=== PATIENT | male | born 1945 | race Caucasian/White ===

== ENCOUNTER 2019-12-10 20:22 | Inpatient (IN) | payer OTHER, MEDICAID ==
[~2019-12-10] VITALS: Ht 172.7 cm; Wt 85.7 kg
--- NOTE | 2019-12-10 20:28 | NUR ---
PT AAOX4. BIB EMS C/O SOB WITH WHEEZING. PATIENT WAS SEEN BY PMD TODAY AND DIAGNOSED WITH PNM. HHN TX GIVEN BY EMS CHILD AND FAMILY SERVICES SPECIALIST. PT PLACED ON 2L NC SAT 96%. NO ACUTE DISTRESS NOTED. VSS. WILL CONTINUE TO MONITOR. MD AT BEDSIDE FOR EVAL.
--- NOTE | 2019-12-10 20:35 | NUR ---
FLU SWAB SAMPLE SENT TO LAB FOR TESTING
--- NOTE | 2019-12-10 20:38 | NUR ---
BLOOD DRAWN AND SENT TO LAB
[2019-12-10] MEDS ORDERED: methylPREDNISolone SOD SUCC 125 MG/2ML VIAL ONE (20:39)
--- NOTE | 2019-12-10 20:48 | NUR ---
RT CALLED FOR MEDICATION ADMIN.
--- NOTE | 2019-12-10 20:50 | NUR ---
MEDICATION GIVEN, VSS.
[2019-12-10] MEDS ORDERED: methylPREDNISolone SOD SUCC 125 MG/2ML VIAL IV ONE (21:00)
[2019-12-10] MEDS ORDERED: IPRATROPIUM NEB FS 0.5 MG/2.5 ML AMPUL.NEB NEB ONE (21:00)
[2019-12-10] MEDS ORDERED: ALBUTEROL FS 2.5 MG/3 ML VIAL.NEB CONTNEB ONE (21:00)
[2019-12-10 21:05] LABS: CALCIUM, SERUM 9.3 mg/dL (8.5-10.1); CREATININE 1.3 mg/dL (0.6-1.3)
[2019-12-10 21:08] LABS: BASOPHILS % (AUTO) 0.8 % (0.0-2.0); EOSINOPHILS % (AUTO) 2.4 % (0.0-6.0); HEMATOCRIT 31 % (39-51); LYMPHOCYTES # (AUTO) 1.2 /CMM (0.8-4.8); LYMPHOCYTES % (AUTO) 20.3 % (20.0-44.0); MEAN CORPUSCULAR HGB CONC 32 g/dl (31.0-36.0); MEAN CORPUSCULAR VOLUME 91 fL (80-96); MONOCYTES # (AUTO) 0.6 /CMM (0.1-1.30); MONOCYTES % (AUTO) 10.3 % (2.0-12.0); NEUTROPHILS # (AUTO) 3.8 /CMM (1.8-8.9); NEUTROPHILS % (AUTO) 66.2 % (43.0-81.0); PLATELET COUNT (AUTO) 122 /CMM (150-450); RED BLOOD CELL COUNT(AUTO) 3.39 MIL/uL (4.5-6.0); WHITE BLOOD COUNT (AUTO) 5.7 K/uL (4.3-11.0)
[2019-12-10 21:19] LABS: BILIRUBIN,DIRECT 0.2 mg/dL (0.0-0.2); BILIRUBIN,TOTAL 0.5 mg/dL (0.2-1.0)
--- NOTE | 2019-12-10 21:29 | NUR ---
PER DAUGHTER. PT WAS SEEN BY PRIMARY WHICH HE HAD AN X RAY DONE WHICH SHOWED PNEUMONIA. PT WAS TOLD HE WOULD TAKE OXYGEN AND NEUBLIZER HOME. PT WAS NOT PROVIDED WITH OXYGEN. DAUGHTER REPORTS SEEING PATIENT GASPING FOR AIR WHERE HE LIVES. CALLED PM AND BROUGHT PT TO ED.
[2019-12-10] MEDS ORDERED: ALBUTEROL FS 2.5 MG/3 ML VIAL.NEB ONE (21:40)
[2019-12-10] MEDS ORDERED: IPRATROPIUM NEB FS 0.5 MG/2.5 ML AMPUL.NEB ONE (21:40)
--- NOTE | 2019-12-10 21:45 | NUR ---
RT AT BEDSIDE FOR BREATHING TREATMENT.
--- NOTE | 2019-12-10 21:46 | NUR ---
XRAY AT BEDSIDE
--- NOTE | 2019-12-10 22:12 | NUR ---
epic classifications officer cc/cm christelle domínguez paged for panel
--- NOTE | 2019-12-10 22:13 | NUR ---
called for tele bed
--- NOTE | 2019-12-10 22:55 | NUR ---
[facility]
--- NOTE | 2019-12-10 23:12 | NUR ---
REPORT GIVEN TO LOUISE SYED FOR CONTINUATION OF CARE.
[2019-12-10] MEDS ORDERED: LORA10TA7 PO (23:23)
[2019-12-10] MEDS ORDERED: LOSA25TA27 PO (23:23)
[2019-12-10] MEDS ORDERED: DOCU100C36 PO (23:23)
[2019-12-10] MEDS ORDERED: CLIN300C11 PO (23:23)
[2019-12-10] MEDS ORDERED: ISOS30TA9 PO (23:23)
[2019-12-10] MEDS ORDERED: LEVO500T75 PO (23:23)
[2019-12-10] MEDS ORDERED: DULO60CA45 PO (23:23)
[2019-12-10] MEDS ORDERED: CARV6.25 PO (23:23)
[2019-12-10] MEDS ORDERED: DONE10TA11 PO (23:23)
[2019-12-10] MEDS ORDERED: APIX2.5T PO (23:23)
[2019-12-10] MEDS ORDERED: MORP15TA PO (23:23)
[2019-12-10] MEDS ORDERED: BUPR-96 PO (23:23)
[2019-12-10] MEDS ORDERED: GLIP5TAB13 PO (23:23)
[2019-12-10] MEDS ORDERED: SENN-168 PO (23:23)
--- NOTE | 2019-12-10 23:30 | NUR ---
APPLICATION ENGINEER OPENING NOTE RECEIVED PATIENT BY ER NURSE IN [facility] [place] WITH DAUGHTER HOSSEIN AT BEDSIDE. PATIENT IS A/O X1 IS ABLE TO TRACE WITH EYES BUT SPEECH IS SLURRED. PATIENT ON THE MONITOR IS SHOWING SINUS RHYTHM. PATIENT IS ON 2L OF O2 TOLERATING AT 96% SATURATION. ALL SKIN IS INTACT. PATIENT HAS RFA IV ACCES #16 PATENT AND FLUSHING WITH NO SIGN OF INFILTRATION. ALL SAFETY PRECAUTIONS HAVE BEEN APPLIED. WILL CONTINUE TO MONITOR PATIENT THROUGHOUT NIGHT.
[2019-12-11] VITALS (9 sets, daily range): BP systolic 114–183; BP diastolic 51–106
--- NOTE | 2019-12-11 00:25 | NUR ---
PT TRANSFERED PER ACLS PROTOCOL.
[2019-12-11] MEDS ORDERED: ACETAMINOPHEN 325 MG TABLET PO PRN (01:00)
[2019-12-11] MEDS ORDERED: BUMETANIDE INJ 4 MG in IV NS 0.9% 24 ML IV ONE (01:00)
[2019-12-11] MEDS ORDERED: ONDANSETRON HCL/PF 4 MG/2 ML VIAL IVP PRN (01:00)
[2019-12-11] MEDS ORDERED: Z GUARD REMEDY 2 OZ OINT TP PRN (01:00)
[2019-12-11] MEDS ORDERED: ENOXAPARIN SODIUM 40 MG/0.4 ML DISP.SYRIN SQ SCH (01:00)
[2019-12-11] MEDS ORDERED: BUMETANIDE INJ 0.25 MG/ML VIAL ONE (01:13)
[2019-12-11] MEDS ORDERED: MULT-447 PO (07:34)
[2019-12-11] MEDS ORDERED: ISOS30TA6 PO (07:34)
--- NOTE | 2019-12-11 07:48 | NUR ---
RN OPENING NOTES RECEIVED PATIENT RESTING IN BED COMFORTABLY WITH GOWN REMOVED OFF CHEST BECAUSE HE GETS HOT EASILY. HE IS AOX1, VERBAL, AND ON BEDREST. HE IS ON 2L OF OXYGEN VIA NC, TOLERATING WELL, DENIES HAVING SOB AT THIS TIME. TELE MONITOR SHOWING SR. SKIN IS INTACT, PT HAS SACRAL REDNESS WILL ROTATE PER PROTOCOL. HE IS ON CARDIAC DIET, CRUSHED MEDS IN APPLE SAUCE. RFA 16 IS PATENT AND INTACT, RUNNING BUMEX AT 1 MG PER HOUR. SAFETY MEASURES HAVE BEEN IMPLEMENTED, CALL LIGHT IS WITHIN REACH, BED IS IN LOWEST AND LOCKED POSITION, SIDE RIALS UP X2, WILL CONTINUE TO MONITOR FOR ANY CHANGES.
--- NOTE | 2019-12-11 08:02 | NUR ---
LIGHT CLEANER CLOSING NOTE PATIENT IN BED A LOT MORE ALERT THAN WHEN ADMITTING. PATIENT IS A/O X2 IS ABLE TO STATE NAME WITH COMPREHENSIBLE SPEECH. PATIENT IS AFIB ON THE MONITOR WITH HR IN THE 70'S. SWALLOW TEST WAS PERFORMED. PATIENT WAS ABLE TO SWALLOW APPLESAUCE WITH PRECAUTIONS TO ASPIRATIONS. PATIENT CONTINUES TO BE ON 2L OF 02 SATURATING AT 97%. Unified Color IS RUNNING THE THE RFA IV ACCESS #16. ALL SAFETY PRECAUTIONS HAVE BEEN APPLIED. BP STILL SLIGHTLY ELEVATED BUT ENDORSED TO MORNING SHIFT NURSE FOR KETTY.
[2019-12-11] MEDS: PANTOPRAZOLE 40 MG TABLET.DR PO SCH (08:03)
[2019-12-11] MEDS ORDERED: hydrALAZINE HCL 50 MG TABLET PO ONE (08:30)
[2019-12-11] MEDS ORDERED: METOPROLOL TARTRATE 50 MG TABLET PO ONE (08:30)
[2019-12-11 11:03] LABS: MAGNESIUM 1.8 mg/dL (1.8-2.4); PHOSPHORUS 5.2 mg/dL (2.5-4.9)
--- NOTE | 2019-12-11 11:10 | NUR ---
RN NOTES REPORT GIVEN TO JULIANNA SYED FOR KETTY
--- NOTE | 2019-12-11 11:22 | NUR ---
just now, care taken over. Alert, but not oriented, did not even know where he is right now, did not even follow basic commands. NO sign of respiratory distress, denied pain.
[2019-12-11] MEDS: BUPROPION XL 150 MG TAB.ER.24 PO SCH (13:50)
[2019-12-11] MEDS: SENNOSIDES 8.6 MG TABLET PO SCH ×2 (13:50→23:24)
[2019-12-11] MEDS: ISOSORBIDE MONONITRATE (30MG) 30 MG TAB.SR.24H PO SCH (13:50)
[2019-12-11] MEDS: LOSARTAN POTASSIUM 25 MG TABLET PO SCH (13:50)
[2019-12-11] MEDS: DOCUSATE SODIUM 100 MG CAPSULE PO SCH ×2 (13:51→17:29)
[2019-12-11] MEDS: DULOXETINE HCL 30 MG CAPSULE.DR PO SCH (17:28)
[2019-12-11] MEDS: CARVEDILOL 6.25 MG TABLET PO SCH (17:29)
[2019-12-11] MEDS: glipiZIDE 5 MG TABLET PO SCH (17:29)
[2019-12-11] MEDS: APIXABAN 2.5 MG TABLET PO SCH (17:30)
[2019-12-11] MEDS: DONEPEZIL 5 MG TABLET PO SCH (23:22)
[2019-12-11] MEDS: MORPHINE SULFATE IR 15 MG TABLET PO SCH (23:23)
[2019-12-12] VITALS (15 sets, daily range): BP systolic 103–174; BP diastolic 47–138
[2019-12-12 06:25] LABS: BASOPHILS % (AUTO) 0.6 % (0.0-2.0); EOSINOPHILS % (AUTO) 1.6 % (0.0-6.0); HEMATOCRIT 34 % (39-51); HEMOGLOBIN 10.9 g/dL (13.5-17.5); LYMPHOCYTES % (AUTO) 25.9 % (20.0-44.0); MEAN CORPUSCULAR HGB CONC 33 g/dl (31.0-36.0); MEAN CORPUSCULAR VOLUME 91 fL (80-96); MONOCYTES # (AUTO) 0.7 /CMM (0.1-1.30); MONOCYTES % (AUTO) 9.1 % (2.0-12.0); NEUTROPHILS # (AUTO) 4.9 /CMM (1.8-8.9); NEUTROPHILS % (AUTO) 62.8 % (43.0-81.0); PLATELET COUNT (AUTO) 146 /CMM (150-450); RED BLOOD CELL COUNT(AUTO) 3.68 MIL/uL (4.5-6.0); WHITE BLOOD COUNT (AUTO) 7.7 K/uL (4.3-11.0)
[2019-12-12 06:43] LABS: CHOLESTEROL 204 mg/dL (<200); HDL CHOLESTEROL 60 mg/dL (40-60); LDL 131 mg/dL (0-99); THYROID STIMULATING HORMONE 2.607 uIU/mL (0.358-3.74); TRIGLYCERIDES 64 mg/dL (30-150)
[2019-12-12 06:51] LABS: ALANINE AMINOTRANSFERASE 19 U/L (12-78); ALBUMIN 3.1 g/dL (3.4-5.0); ALKALINE PHOSPHATASE 66 U/L (46-116); ASPARTATE AMINOTRANSFERASE 15 U/L (15-37); B-TYPE NATRIURETIC PEPTIDE 3929 PG/ML (0-125); BILIRUBIN,TOTAL 0.4 mg/dL (0.2-1.0); CALCIUM, SERUM 9.1 mg/dL (8.5-10.1); CARBON DIOXIDE 35 mmol/L (21-32); CHLORIDE 105 mmol/L (98-107); CREATININE 1.6 mg/dL (0.6-1.3); GLUCOSE 126 mg/dL (74-106); PHOSPHORUS 4.4 mg/dL (2.5-4.9); POTASSIUM 3.9 mmol/L (3.5-5.1); SODIUM SERUM 143 mmol/L (136-145); TOTAL PROTEIN, SERUM 7.2 g/dL (6.4-8.2); UREA NITROGEN, BLOOD 46 mg/dL (7-18)
[2019-12-12 07:16] LABS: IRON, SERUM 27 ug/dl (50-175); TOTAL IRON BINDING CAPACITY 281 ug/dl (250-450)
[2019-12-12] MEDS: BUPROPION XL 150 MG TAB.ER.24 PO SCH (08:30)
[2019-12-12] MEDS: MULTIVITAMINS,THERAGRAN 1 UDTAB TABLET PO SCH (08:31)
[2019-12-12] MEDS: ISOSORBIDE MONONITRATE (30MG) 30 MG TAB.SR.24H PO SCH (08:31)
[2019-12-12] MEDS: PANTOPRAZOLE 40 MG TABLET.DR PO SCH (08:31)
[2019-12-12] MEDS: DOCUSATE SODIUM 100 MG CAPSULE PO SCH ×2 (08:31→18:13)
[2019-12-12] MEDS: LOSARTAN POTASSIUM 25 MG TABLET PO SCH (08:32)
[2019-12-12] MEDS: glipiZIDE 5 MG TABLET PO SCH ×2 (08:32→18:15)
[2019-12-12] MEDS: CARVEDILOL 6.25 MG TABLET PO SCH ×2 (08:32→18:14)
[2019-12-12] MEDS: APIXABAN 2.5 MG TABLET PO SCH ×2 (08:33→17:00)
[2019-12-12] MEDS ORDERED: acetaZOLAMIDE SODIUM 500 MG/VIAL VIAL IV ONE (09:30)
[2019-12-12 09:48] LABS: ABG BASE EXCESS 3.2 mmol/L; ABG OXYGEN SATURATION 91.2 % (92.0-98.5); ABG PCO2 66.6 mmHg (35.0-45.0); ABG PH 7.289 (7.350-7.450); ABG PO2 71.3 mmHg (75.0-100.0); AaDO2 49.8 mmHg; COHb 0.5 % (0.5-1.5); MetHb 0.2 % (0.0-1.5); O2Hb 90.6 % (94.0-97.0); SITE, ABG Left Radial; VENT MODE, BG 2L N/C
--- NOTE | 2019-12-12 09:58 | NUR ---
RT ABG DONE WITH CRITICAL VALUES REPORTED TO YAHAIRA TELLO AND CHARGE NURSE ERIS. PATIENT CURRENTLY STABLE. AWAITING ORDERS FROM DOCTOR.
--- NOTE | 2019-12-12 11:40 | NUR ---
ICU/DENTAL CERAMIST ASSISTANT OF CARE - UPGRADE ICU REPORT GIVEN BY NURSE TELLO. TO BE TRANSFERRED TO ICU FOR BI-PAP. PT ARRIVED TO ROOM 250 VIA BED, ACCOMPANIED BY (2) NURSE, MY SELF AND ROE AND SOLID DIE CUTTER (DEMETRIUS) PT PLACED ON BIPAP WITH RATES SET PRESCRIBED: IPAP 15, EPAP 5, FIO2 30% & RATE 12. SATURATING @ 93, RESPIRATIONS EVEN & UNLABORED, LUNG SOUNDS CLEAR. PLACED ON TELE MONITORING NOTED, CONTROLLED A-FIB, HR 63. PT A/O X 1, ABLE TO VERBALIZED NEEDS. IV FLUSHED PATENT WITH NO S/S OF INFECTION. NO EDEMA NOTED. CL WITHIN REACHED AND SAFETY MAINTAINED. ON GOING MONITORING.
--- NOTE | 2019-12-12 12:01 | NUR ---
PER DR GANNON PATIENT PLACED ON BIPAP MACHINE [facility]. 31/03 R12 30% Addendum: 12/12/19 at 1202 by JAMES REID RT Amended: Links added.
[2019-12-12] MEDS: hydrALAZINE HCL 25 MG TABLET PO SCH ×2 (13:00→21:33)
--- NOTE | 2019-12-12 13:00 | NUR ---
ICU/COLLEGE RECRUITER TO ICU - ROOM 250 PT ENDORSED BY NURSE TELLO TO CONTINUE CARE. PT A/O X 1, ABLE TO VERBALIZED NEEDS, NO ACUTE RESPIRATORY DISTRESS NOTED, LUNG SOUNDS RHONCHI, TRANSFERRED ICU FOR BI-PAP. IV SITE FLUSHED, PATENT, NO S/S OF INFECTION, SL. MONITORING CONTINUED.
--- NOTE | 2019-12-12 17:00 | NUR ---
ICU/RN AFTERNOON ROUNDS NO CHANGE OF CONDITION. PM CARE PROVIDED. PT OFF BI-PAP, PLACED ON 3L O2 VIA N/C. ON GOING MONITORING.
[2019-12-12] MEDS: DULOXETINE HCL 30 MG CAPSULE.DR PO SCH (18:14)
--- NOTE | 2019-12-12 20:00 | NUR ---
SALESPERSON MEN'S AND BOYS' CLOTHING OPENING NOTE, PATIENT IN BED RESTING, A/O X1. PATIENT IS ABLE TO VERBALIZED NEEDS, ON CONDOM CATH, IV SL ON RIGHT AC, FLUSHED WELL, NO S/S OF INFILTRATION. PATIENT IS ON 2L O2 TOLERATING WELL. NO SOB OR ACUTE DISTRESS NOTED AT THIS TIME. PATIENT ON MONITOR HR 62. BED IN LOW/LOCKED POSITION, CALL LIGHT WITHIN REACH. WILL CONTINUE TO MONITOR.
[2019-12-12] MEDS: DONEPEZIL 5 MG TABLET PO SCH (21:32)
[2019-12-12] MEDS: SENNOSIDES 8.6 MG TABLET PO SCH (21:33)
[2019-12-12] MEDS: MORPHINE SULFATE IR 15 MG TABLET PO SCH (21:48)
[2019-12-13] VITALS (21 sets, daily range): BP systolic 95–170; BP diastolic 26–72
[2019-12-13] MEDS: hydrALAZINE HCL 25 MG TABLET PO SCH ×3 (05:12→21:21)
[2019-12-13 05:15] LABS: BASOPHILS % (AUTO) 0.6 % (0.0-2.0); EOSINOPHILS % (AUTO) 2.7 % (0.0-6.0); HEMATOCRIT 33 % (39-51); HEMOGLOBIN 10.5 g/dL (13.5-17.5); LYMPHOCYTES # (AUTO) 1.2 /CMM (0.8-4.8); LYMPHOCYTES % (AUTO) 19.8 % (20.0-44.0); MEAN CORPUSCULAR HGB CONC 32 g/dl (31.0-36.0); MEAN CORPUSCULAR VOLUME 94 fL (80-96); MONOCYTES # (AUTO) 0.5 /CMM (0.1-1.30); MONOCYTES % (AUTO) 9.2 % (2.0-12.0); NEUTROPHILS % (AUTO) 67.7 % (43.0-81.0); PLATELET COUNT (AUTO) 125 /CMM (150-450); WHITE BLOOD COUNT (AUTO) 5.9 K/uL (4.3-11.0)
[2019-12-13 05:31] LABS: ALANINE AMINOTRANSFERASE 19 U/L (12-78); ALBUMIN 2.9 g/dL (3.4-5.0); ALKALINE PHOSPHATASE 64 U/L (46-116); ASPARTATE AMINOTRANSFERASE 15 U/L (15-37); BILIRUBIN,TOTAL 0.5 mg/dL (0.2-1.0); CALCIUM, SERUM 8.7 mg/dL (8.5-10.1); CARBON DIOXIDE 34 mmol/L (21-32); CHLORIDE 105 mmol/L (98-107); CREATININE 1.7 mg/dL (0.6-1.3); GLUCOSE 129 mg/dL (74-106); MAGNESIUM 1.9 mg/dL (1.8-2.4); PHOSPHORUS 4.5 mg/dL (2.5-4.9); POTASSIUM 4.2 mmol/L (3.5-5.1); SODIUM SERUM 143 mmol/L (136-145); TOTAL PROTEIN, SERUM 6.7 g/dL (6.4-8.2); UREA NITROGEN, BLOOD 48 mg/dL (7-18)
[2019-12-13 05:46] LABS: CREATINE KINASE, TOTAL 37 U/L (39-308)
--- NOTE | 2019-12-13 06:58 | NUR ---
DAIRY FEED MIXING OPERATOR CLOSING NOTE, PATIENT IN BED RESTING, A/O X1. PATIENT IS ABLE TO VERBALIZED NEEDS, ON CONDOM CATH, IV SL ON RIGHT AC, FLUSHED WELL, NO S/S OF INFILTRATION. PATIENT IS ON BIPAP, TOLERATING WELL. NO SOB OR ACUTE DISTRESS NOTED AT THIS TIME. PATIENT ON MONITOR HR 57. BED IN LOW/LOCKED POSITION, CALL LIGHT WITHIN REACH. WILL ENDORSE THE PATIENT TO AM RN FOR KETTY.
--- NOTE | 2019-12-13 07:30 | NUR ---
ICU/RN AM SHIFT OPENING NOTES RECEIVED PT AWAKE IN BED, PT A/O X 1, PLEASANT, ABLE TO VERBALIZED NEEDS, DENIES ANY SYMPTOMS. NO ACUTE RESPIRATORY DISTRESS NOTED. ON 1.5L O2 VIA N/C SATURATING @ 94%, RESPIRATIONS EVEN & UNLABORED, LUNG SOUNDS CLEAR. ON TELE MONITORING, SINUS RHYTHM, HR 62. IV SITE FLUSHED, PATENT WITH NO S/S OF INFECTION, SL. CONDOM CATHETER INTACT NOTED WITH MINIMAL CLEAR URINE OUT. PT IS COMFORTABLE, SCHEDULED AM MEDS TO BE GIVEN. CL WITHIN REACHED AND SAFETY MAINTAINED. ON GOING MONITORING. Addendum: 12/13/19 at 1153 by MICHAEL MCDONALD RN ERROR IN CHARTING: PT ON TELE MONITORING NOTED WITH CONTROLLED A-FIB.
[2019-12-13] MEDS: APIXABAN 2.5 MG TABLET PO SCH ×2 (08:20→17:57)
[2019-12-13] MEDS: CARVEDILOL 6.25 MG TABLET PO SCH ×2 (08:20→17:57)
[2019-12-13] MEDS: ISOSORBIDE MONONITRATE (30MG) 30 MG TAB.SR.24H PO SCH (08:20)
[2019-12-13] MEDS: MULTIVITAMINS,THERAGRAN 1 UDTAB TABLET PO SCH (08:21)
[2019-12-13] MEDS: glipiZIDE 5 MG TABLET PO SCH ×2 (08:21→17:57)
[2019-12-13] MEDS: PANTOPRAZOLE 40 MG TABLET.DR PO SCH (08:21)
[2019-12-13] MEDS: BUPROPION XL 150 MG TAB.ER.24 PO SCH (08:21)
[2019-12-13] MEDS: DOCUSATE SODIUM 100 MG CAPSULE PO SCH ×2 (08:21→17:57)
--- NOTE | 2019-12-13 09:00 | NUR ---
ICU/RN ROUNDS - DR. EVANS PT SEEN & EVALUATED BY DR. EVANS. VERBAL ORDER FOR STAT ABG. RT NOTIFIED, NOTED AND CARRIED OUT.
[2019-12-13] MEDS ORDERED: BUMETANIDE INJ 8 MG in IV NS 0.9% 48 ML IV ONE (09:30)
[2019-12-13 09:40] LABS: ABG OXYGEN SATURATION 93.5 % (92.0-98.5); ABG PCO2 57.8 mmHg (35.0-45.0); ABG PH 7.319 (7.350-7.450); ABG PO2 76.9 mmHg (75.0-100.0); COHb 0.2 % (0.5-1.5); MetHb 0.1 % (0.0-1.5); O2Hb 93.2 % (94.0-97.0); SITE, ABG Left Radial; VENT MODE, BG NASAL CANNULA
[2019-12-13 09:47] LABS: CREATININE, URINE 124.8 MG/DL (30.0-125.0); URINE TOTAL PROTEIN 53.4 mg/dL (0-11.9)
--- NOTE | 2019-12-13 10:00 | NUR ---
ICU/RN SPEECH THERAPIST PT SEEN & EVALUATED BY SPEECH THERAPIST. RECOMMENDED MECHANICAL SOFT DIET. NOTED AND CARRIED.
--- NOTE | 2019-12-13 10:25 | NUR ---
ICU/RN ABG RESULT NOTIFIED BY DR. EVANS OF THE RESULT OF ABG, ORDERED TO REDUCE O2 FLOW FROM 1.5L TO 1.0 O2 VIA N/C. NOTED AND CARRIED, RT AWARE. MONITORING CONTINUED.
[2019-12-13 11:13] LABS: APPEARANCE,URINE CLEAR (CLEAR); BILIRUBIN,URINE NEGATIVE (NEGATIVE); BLOOD, URINE NEGATIVE Ery/uL (NEGATIVE); COLOR,URINE YELLOW (YELLOW); KETONES,URINE NEGATIVE (NEGATIVE); LEUKOCYTE ESTERASE ,URINE NEGATIVE (NEGATIVE); NITRITE, URINE NEGATIVE (NEGATIVE); PH,URINE 7.5 (5.0-8.0); PROTEIN,URINE 30 mg/dl (NEGATIVE); UGLUCOSE NEGATIVE (NEGATIVE)
[2019-12-13 12:33] LABS: BACTERIA,URINE Few /HPF (None Seen); RBC,URINE 0-2 /HPF (0-2)
[2019-12-13 12:34] LABS: SQUAMOUS EPITHELIAL CELL,UR Rare /HPF (None Seen)
[2019-12-13 13:10] LABS: EOSINOPHIL,URINE None Seen
[2019-12-13] MEDS: SOD FERRIC GLUC 125 MG in IV NS 0.9% 100 ML IV SCH (14:56)
--- NOTE | 2019-12-13 17:00 | NUR ---
ICU/RN AFTERNOON ROUNDS NO CHANGE OF CONDITION. PT NOTED WITH LARGE AMOUNTS OF URINE OUTPUT. MONITORING CONTINUED.
[2019-12-13] MEDS: DULOXETINE HCL 30 MG CAPSULE.DR PO SCH (17:57)
--- NOTE | 2019-12-13 19:00 | NUR ---
ICU/SUPERVISOR OPERATIONS OF CARE - DOWNGRADED PT ENDORSED TO NURSE NICOLAS TO CONTINUE CARE. PT TRANSFERRED TO ROOM 107 IN STABLE CONDITION VIA BED ACCOMPANIED BY MYSELF AND NURSE NICOLAS.
--- NOTE | 2019-12-13 19:25 | NUR ---
RN OPENING NOTES RECEIVED PATIENT RESTING IN BED, AWAKE, A/OX2. DENIES ANY PAIN AT THE MOMENT. ON TELE MONITOR AFIB WITH HR 60'S. ON OXYGEN 1L VIA NASAL CANNULA, TOLERATING WELL, NO SOB OR RESPIRATORY DISTRESS NOTED, SATURATING 96% AT THE MOMENT. IV SITE RIGHT FA 16G, FLUSHING AND PATENT, CLAMPED, SITE C/D/I. CONDOM CATH IS INTACT, DRAINING YELLOW URINE NOTED. SAFETY MEASURES IN PLACE; CALL LIGHT WITHIN REACH, BED IS IN LOWEST AND LOCKED POSITION, SIDE RAILS UP X2, HOB ELEVATED. WILL CONTINUE TO MONITOR PT CLOSELY.
--- NOTE | 2019-12-13 20:30 | NUR ---
CARRIE RN NOTES PATIENT SATURATING 92-93% ON 1L VIA NASAL CANNULA. INCREASED OXYGEN TO 2L AND ONLY INCREASED TO 94%. INCREASED TO 3L AND NOW SATURATING 96% AND ABOVE. NO SOB OR RESPIRATORY DISTRESS NOTED. WILL CONT TO MONITOR PT CLOSELY.
[2019-12-13] MEDS: DONEPEZIL 5 MG TABLET PO SCH (21:21)
[2019-12-13] MEDS: SENNOSIDES 8.6 MG TABLET PO SCH (21:21)
--- NOTE | 2019-12-13 23:45 | NUR ---
PT PLACED ON NOC BIPAP. RN NOTIFIED.
[2019-12-14] VITALS: BP 132/46
[2019-12-14 04:00] VITALS: BP 122/41
[2019-12-14] MEDS: hydrALAZINE HCL 25 MG TABLET PO SCH ×3 (04:31→21:00)
--- NOTE | 2019-12-14 05:52 | NUR ---
PT TAKEN OFF BIPAP. PLACED ON 3L NC. RN NOTIFIED.
[2019-12-14 06:24] LABS: BASOPHILS % (AUTO) 0.5 % (0.0-2.0); EOSINOPHILS % (AUTO) 2.7 % (0.0-6.0); HEMATOCRIT 33 % (39-51); HEMOGLOBIN 10.7 g/dL (13.5-17.5); LYMPHOCYTES # (AUTO) 1.2 /CMM (0.8-4.8); LYMPHOCYTES % (AUTO) 18.5 % (20.0-44.0); MEAN CORPUSCULAR HGB CONC 33 g/dl (31.0-36.0); MEAN CORPUSCULAR VOLUME 91 fL (80-96); MONOCYTES # (AUTO) 0.7 /CMM (0.1-1.30); NEUTROPHILS # (AUTO) 4.4 /CMM (1.8-8.9); NEUTROPHILS % (AUTO) 68.3 % (43.0-81.0); PLATELET COUNT (AUTO) 127 /CMM (150-450); RED BLOOD CELL COUNT(AUTO) 3.58 MIL/uL (4.5-6.0); WHITE BLOOD COUNT (AUTO) 6.5 K/uL (4.3-11.0)
[2019-12-14 06:30] LABS: ALANINE AMINOTRANSFERASE 13 U/L (12-78); ALKALINE PHOSPHATASE 65 U/L (46-116); ASPARTATE AMINOTRANSFERASE 13 U/L (15-37); BILIRUBIN,TOTAL 0.4 mg/dL (0.2-1.0); CALCIUM, SERUM 8.6 mg/dL (8.5-10.1); CARBON DIOXIDE 37 mmol/L (21-32); CHLORIDE 103 mmol/L (98-107); CREATININE 1.9 mg/dL (0.6-1.3); GLUCOSE 146 mg/dL (74-106); MAGNESIUM 1.9 mg/dL (1.8-2.4); PHOSPHORUS 3.4 mg/dL (2.5-4.9); POTASSIUM 3.6 mmol/L (3.5-5.1); SODIUM SERUM 141 mmol/L (136-145); TOTAL PROTEIN, SERUM 6.8 g/dL (6.4-8.2); UREA NITROGEN, BLOOD 50 mg/dL (7-18)
--- NOTE | 2019-12-14 07:01 | NUR ---
CARRIE RN CLOSING NOTES PATIENT SLEEPING IN BED, BUT EASY TO AROUSE, A/OX2. ON TELE MONITOR AFIB WITH HR 50'S-60'S. NOCTURNAL BIPAP TOLERATED WELL, NOW ON OXYGEN 3L VIA NASAL CANNULA, TOLERATING WELL, NO SOB OR RESPIRATORY DISTRESS NOTED, SATURATING 96% AT THE MOMENT. IV SITE RIGHT FA 16G, FLUSHING AND PATENT, S/L, SITE C/D/I. CONDOM CATH IS INTACT, DRAINING YELLOW URINE NOTED. KEPT PT CLEAN, DRY, AND COMFORTABLE. SAFETY MEASURES IN PLACE; CALL LIGHT WITHIN REACH, BED IS IN LOWEST AND LOCKED POSITION, SIDE RAILS UP X2, HOB ELEVATED. ENDORSED TO AM RN FOR KETTY. Addendum: 12/14/19 at 0735 by JENI OHARA RN PATIENT HR 48 BPM TWICE LAST NIGHT. ENDORSED TO AM RN.
[2019-12-14 08:00] VITALS: BP 151/55
--- NOTE | 2019-12-14 08:00 | NUR ---
CARRIE RN NOTE PATIENT IN BED. AWAKE, ALERT , FOLLOW COMMAND, ON TELE MONITOR, SR HR 63, WITH US CATH TO GRAVITY WITH YELLOW COLOR URINE, RT FA HL INTACT AND FLUSHED WELL , NO SOB AT THIS TIME, ON2L NC ,SAT 95%, BED IN LOWEST AND LOCKED POSITION , CALL LIGHT WITHIN REACH, PLAN OF CARE DISCUSSED WITH PATIENT, WILL MONITOR
[2019-12-14 08:08] LABS: PTH, INTACT 60 pg/mL (15-65)
[2019-12-14] MEDS: PANTOPRAZOLE 40 MG TABLET.DR PO SCH (09:25)
[2019-12-14] MEDS: APIXABAN 2.5 MG TABLET PO SCH ×2 (09:26→16:26)
[2019-12-14] MEDS: glipiZIDE 5 MG TABLET PO SCH ×2 (09:27→16:27)
[2019-12-14] MEDS: MULTIVITAMINS,THERAGRAN 1 UDTAB TABLET PO SCH (09:29)
[2019-12-14] MEDS: BUPROPION XL 150 MG TAB.ER.24 PO SCH (09:29)
[2019-12-14] MEDS: ISOSORBIDE MONONITRATE (30MG) 30 MG TAB.SR.24H PO SCH (09:30)
--- NOTE | 2019-12-14 09:37 | NUR ---
CARRIE RN NOTE ST AT BEDSIDE WITH ORDER CHOPPED DIET
[2019-12-14] MEDS: DOCUSATE SODIUM 100 MG CAPSULE PO SCH ×2 (09:38→16:24)
[2019-12-14] MEDS: CARVEDILOL 6.25 MG TABLET PO SCH ×2 (09:39→16:26)
--- NOTE | 2019-12-14 11:27 | NUR ---
CARRIE RN NOTE US RENAL DONE
[2019-12-14 12:00] VITALS: BP 122/36
[2019-12-14] MEDS: SOD FERRIC GLUC 125 MG in IV NS 0.9% 100 ML IV SCH (13:51)
--- NOTE | 2019-12-14 15:12 | NUR ---
COST COORDINATOR NOTE FED PATIENT ,ATE LUNCH , KEEP CLEAN DRY .CALL LIGHT WITHIN REACH
--- NOTE | 2019-12-14 15:26 | NUR ---
REPAIRER RECREATIONAL VEHICLE NOTE PER DAUGHTER REQUEST, INFORM TO TOM PADILLA RN SERVICE COUNTER CASHIER TO CALL HER, PHONE NUMBER GIVEN TO HIM
[2019-12-14 16:00] VITALS: BP 132/45
[2019-12-14] MEDS: POTASSIUM CHLORIDE 20 MEQ TAB.PRT.SR PO SCH ×3 (17:22→18:59)
[2019-12-14] MEDS: FUROSEMIDE 100 MG/10 ML VIAL IV SCH ×2 (17:22→21:15)
[2019-12-14] MEDS: DULOXETINE HCL 30 MG CAPSULE.DR PO SCH (17:38)
--- NOTE | 2019-12-14 18:22 | NUR ---
GROUND WATER TECHNICIAN NOTES PT IN BED ON O2 [address] CONDOM CATH IN PLACE, WITH YELLOW URINE. HAD BM X 1. KEEP CLEAN AND DRY. FED PT ATE 50% OF DINNER. HOB ELEVATED CALL LIGHT AT REACH. SAFTEY MEASURE OBSERVED. WILL MONITOR. NO SOB NOTED.
--- NOTE | 2019-12-14 19:20 | NUR ---
RN OPEN NOTES RECEIVED PATIENT AWAKE SITTING IN BED WITH FAMILY AT BEDSIDE. A/OX2. NO SIGNS OF DISTRESS OR DISCOMFORT. BREATHING EVEN AND UNLABORED. ON 1LPM 02 VIA NC. ON TELE MONITOR WITH AFIB 61 NOTED. IV ACCESS IN RFA, PATENT AND INTACT, NO SIGNS OF REDNESS OR INFILTRATION. HAS CONDOM CATH, INTACT, DRAINING CLEAR YELLOW FLUID. BED IN LOW LOCKED POSITION WITH SIDE RAILS X2. CALL LIGHT WITHIN REACH. WILL CONTINUE TO MONITOR.
[2019-12-14 20:00] VITALS: BP 128/44
[2019-12-14] MEDS: SENNOSIDES 8.6 MG TABLET PO SCH (21:15)
[2019-12-14] MEDS: DONEPEZIL 5 MG TABLET PO SCH (21:15)
[2019-12-15] VITALS (7 sets, daily range): BP systolic 115–138; BP diastolic 43–62
[2019-12-15] MEDS: FUROSEMIDE 100 MG/10 ML VIAL IV SCH ×4 (00:27→18:32)
[2019-12-15] MEDS: hydrALAZINE HCL 25 MG TABLET PO SCH ×3 (05:59→21:02)
[2019-12-15 06:28] LABS: BASOPHILS % (AUTO) 0.4 % (0.0-2.0); EOSINOPHILS % (AUTO) 2.6 % (0.0-6.0); HEMATOCRIT 35 % (39-51); HEMOGLOBIN 11.6 g/dL (13.5-17.5); LYMPHOCYTES # (AUTO) 1.5 /CMM (0.8-4.8); LYMPHOCYTES % (AUTO) 22.3 % (20.0-44.0); MEAN CORPUSCULAR HGB CONC 33 g/dl (31.0-36.0); MEAN CORPUSCULAR VOLUME 91 fL (80-96); MONOCYTES # (AUTO) 0.7 /CMM (0.1-1.30); NEUTROPHILS # (AUTO) 4.4 /CMM (1.8-8.9); NEUTROPHILS % (AUTO) 64.7 % (43.0-81.0); PLATELET COUNT (AUTO) 138 /CMM (150-450); RED BLOOD CELL COUNT(AUTO) 3.91 MIL/uL (4.5-6.0); WHITE BLOOD COUNT (AUTO) 6.8 K/uL (4.3-11.0)
[2019-12-15 06:49] LABS: ALANINE AMINOTRANSFERASE 19 U/L (12-78); ALBUMIN 3.3 g/dL (3.4-5.0); ALKALINE PHOSPHATASE 69 U/L (46-116); ASPARTATE AMINOTRANSFERASE 13 U/L (15-37); BILIRUBIN,TOTAL 0.5 mg/dL (0.2-1.0); CALCIUM, SERUM 9.5 mg/dL (8.5-10.1); CARBON DIOXIDE 36 mmol/L (21-32); CHLORIDE 104 mmol/L (98-107); CREATININE 1.9 mg/dL (0.6-1.3); GLUCOSE 151 mg/dL (74-106); MAGNESIUM 2.1 mg/dL (1.8-2.4); PHOSPHORUS 3.7 mg/dL (2.5-4.9); POTASSIUM 3.7 mmol/L (3.5-5.1); SODIUM SERUM 142 mmol/L (136-145); TOTAL PROTEIN, SERUM 7.4 g/dL (6.4-8.2); UREA NITROGEN, BLOOD 43 mg/dL (7-18)
[2019-12-15 07:11] LABS: *SPE A/G RATIO 0.9 (0.7-1.7); *SPE ALBUMIN 2.9 g/dL (2.9-4.4); *SPE ALPHA-1-GLOBULIN 0.2 g/dL (0.0-0.4); *SPE ALPHA-2-GLOBULIN 0.8 g/dL (0.4-1.0); *SPE GLOBULIN, TOTAL 3.3 g/dL (2.2-3.9); *SPE M-SPIKE Not Observed g/dL (Not Observed); *SPEGAMMA GLOBULIN 1.3 g/dL (0.4-1.8)
--- NOTE | 2019-12-15 07:40 | NUR ---
RN CLOSING NOTES PATIENT RESTING COMFORTABLY IN BED, EASILY AROUSABLE. A/OX2. NO SIGNS OF DISTRESS OR DISCOMFORT. BREATHING EVEN AND UNLABORED. ON 1LPM 02 VIA NC. ON TELE MONITOR WITH AFIB 65 NOTED. IV ACCESS IN RFA, PATENT AND INTACT, NO SIGNS OF REDNESS OR INFILTRATION. HAS CONDOM CATH, INTACT, DRAINING CLEAR YELLOW FLUID. ALL NEEDS MET. NO SIGNIFICANT CHANGES THROUGH THE NIGHT. BED IN LOW LOCKED POSITION WITH SIDE RAILS X2. CALL LIGHT WITHIN REACH. ENDORSED TO AM SHIFT FOR KETTY.
--- NOTE | 2019-12-15 07:40 | NUR ---
RNOPENING NOTES RECEIVED PATIENT ASLEEP IN BED WITH HOB ELEVATED. PATIENT IS A/O X2, NO DISCOMFORT NOTED AT THIS TIME. BREATHING IS EVEN AND UNLABORED, ON 1L O2 VIA NC, TOLERATING WELL, SATURATING WELL AT 97%. IV ON RFA INTACT, PATENT, NO S/S OF INFECTION NOTED. FLUSHED WELL. PATIENT HAS A CONDOM CATH INTACT, DRAINING CLEAR YELLOW URINE. SAFETY MAINTAINED, CALL LIGHT WITHIN REACH, WILL CONTINUE TO MONITOR.
[2019-12-15] MEDS: BUPROPION XL 150 MG TAB.ER.24 PO SCH (09:31)
[2019-12-15] MEDS: ISOSORBIDE MONONITRATE (30MG) 30 MG TAB.SR.24H PO SCH (09:31)
[2019-12-15] MEDS: PANTOPRAZOLE 40 MG TABLET.DR PO SCH (09:31)
[2019-12-15] MEDS: DOCUSATE SODIUM 100 MG CAPSULE PO SCH ×2 (09:31→17:36)
[2019-12-15] MEDS: CARVEDILOL 6.25 MG TABLET PO SCH ×2 (09:32→17:38)
[2019-12-15] MEDS: MULTIVITAMINS,THERAGRAN 1 UDTAB TABLET PO SCH (09:32)
[2019-12-15] MEDS: APIXABAN 2.5 MG TABLET PO SCH ×2 (09:33→17:39)
[2019-12-15] MEDS: glipiZIDE 5 MG TABLET PO SCH ×2 (09:33→17:38)
[2019-12-15] MEDS: METOLAZONE 2.5 MG TABLET PO SCH (11:39)
[2019-12-15] MEDS: POTASSIUM CHLORIDE 20 MEQ TAB.PRT.SR PO SCH ×3 (11:39→13:04)
[2019-12-15] MEDS: SOD FERRIC GLUC 125 MG in IV NS 0.9% 100 ML IV SCH (13:31)
[2019-12-15] MEDS: DULOXETINE HCL 30 MG CAPSULE.DR PO SCH (17:37)
--- NOTE | 2019-12-15 19:15 | NUR ---
RN CLOSING NOTES ENDORSED PATIENT TO BARREL RIB MATTING MACHINE OPERATOR NURSE TO CONTINUE CARE. NO ACUTE CHANGES TO PATIENT CONDITION DURING MY SHIFT. ALL NEEDS MET. DAUGHTER AT BEDSIDE. ALL SCHEDULED MEDICATIONS ADMINISTERED. SAFETY MAINTAINED, CALL LIGHT WITHIN REACH, BARREL RIB MATTING MACHINE OPERATOR NURSE WILL CONTINUE CARE.
--- NOTE | 2019-12-15 19:30 | NUR ---
Recieved in bed alert orientated x2. daughter at the bedside both eating a snack condom cath on
[2019-12-15] MEDS: DONEPEZIL 5 MG TABLET PO SCH (21:44)
[2019-12-15] MEDS: SENNOSIDES 8.6 MG TABLET PO SCH (21:44)
--- NOTE | 2019-12-15 23:28 | NUR ---
RT NOTE Pt placed on bipap per md order @ 2081. Pt shows no signs of resp distress or sob. Mepilex in place and no skin tear or redness noted. Bipap plugged into red outlet, Alarms are set and audible. Will continue to monitor. Addendum: 12/15/19 at 2330 by CODEY SAEZ RT Amended: Links added.
[2019-12-16] VITALS: BP 133/44
[2019-12-16 04:00] VITALS: BP 152/73
[2019-12-16] MEDS: hydrALAZINE HCL 25 MG TABLET PO SCH ×3 (05:14→21:21)
--- NOTE | 2019-12-16 06:24 | NUR ---
BIPAP THRU THE NIGHT NO RESP DISTRESS WILL FOLLOW SIMOLE DIRECTIONS SMILES AN DOES COMMUNICAT SIMPLE SENTENCES.
[2019-12-16 06:35] LABS: BASOPHILS % (AUTO) 0.4 % (0.0-2.0); EOSINOPHILS % (AUTO) 1.7 % (0.0-6.0); HEMATOCRIT 37 % (39-51); HEMOGLOBIN 12.1 g/dL (13.5-17.5); LYMPHOCYTES # (AUTO) 1.4 /CMM (0.8-4.8); LYMPHOCYTES % (AUTO) 15.3 % (20.0-44.0); MEAN CORPUSCULAR HGB CONC 33 g/dl (31.0-36.0); MEAN CORPUSCULAR VOLUME 90 fL (80-96); MONOCYTES # (AUTO) 0.8 /CMM (0.1-1.30); MONOCYTES % (AUTO) 8.7 % (2.0-12.0); NEUTROPHILS # (AUTO) 6.6 /CMM (1.8-8.9); NEUTROPHILS % (AUTO) 73.9 % (43.0-81.0); PLATELET COUNT (AUTO) 155 /CMM (150-450); RED BLOOD CELL COUNT(AUTO) 4.13 MIL/uL (4.5-6.0)
[2019-12-16 06:54] LABS: ALANINE AMINOTRANSFERASE 17 U/L (12-78); ALBUMIN 3.4 g/dL (3.4-5.0); ALKALINE PHOSPHATASE 70 U/L (46-116); ASPARTATE AMINOTRANSFERASE 14 U/L (15-37); CARBON DIOXIDE 34 mmol/L (21-32); CHLORIDE 97 mmol/L (98-107); CREATININE 2.3 mg/dL (0.6-1.3); GLUCOSE 178 mg/dL (74-106); MAGNESIUM 1.9 mg/dL (1.8-2.4); PHOSPHORUS 3.8 mg/dL (2.5-4.9); POTASSIUM 3.6 mmol/L (3.5-5.1); SODIUM SERUM 140 mmol/L (136-145); TOTAL PROTEIN, SERUM 7.8 g/dL (6.4-8.2); UREA NITROGEN, BLOOD 50 mg/dL (7-18)
[2019-12-16] MEDS: PANTOPRAZOLE 40 MG TABLET.DR PO SCH (07:41)
[2019-12-16 07:43] LABS: BILIRUBIN,TOTAL 0.6 mg/dL (0.2-1.0)
[2019-12-16 08:00] VITALS: BP 138/69
[2019-12-16] MEDS: BUPROPION XL 150 MG TAB.ER.24 PO SCH (08:58)
[2019-12-16] MEDS: DOCUSATE SODIUM 100 MG CAPSULE PO SCH ×2 (08:58→16:54)
[2019-12-16] MEDS: MULTIVITAMINS,THERAGRAN 1 UDTAB TABLET PO SCH (08:58)
[2019-12-16] MEDS: CARVEDILOL 6.25 MG TABLET PO SCH ×2 (08:58→16:55)
[2019-12-16] MEDS: METOLAZONE 2.5 MG TABLET PO SCH (08:58)
[2019-12-16] MEDS: ISOSORBIDE MONONITRATE (30MG) 30 MG TAB.SR.24H PO SCH (08:58)
[2019-12-16] MEDS: glipiZIDE 5 MG TABLET PO SCH ×2 (08:58→16:54)
[2019-12-16] MEDS: APIXABAN 2.5 MG TABLET PO SCH ×2 (08:59→16:55)
--- NOTE | 2019-12-16 11:17 | NUR ---
TELE/RN NOTES PER PT CLAUDIO TO D/C THE ORDER FOR EVAL SINCE HE ALREADT SAW HIM AND ITS A DUPLICATE ORDER.
[2019-12-16] MEDS: FUROSEMIDE 40 MG TABLET PO SCH (11:23)
[2019-12-16 12:00] VITALS: BP_SYST 101; BP_SYST 128; BP_DIAS 47; BP_DIAS 73
[2019-12-16] MEDS: SOD FERRIC GLUC 125 MG in IV NS 0.9% 100 ML IV SCH (13:25)
[2019-12-16 16:00] VITALS: BP 120/54
[2019-12-16] MEDS: DULOXETINE HCL 30 MG CAPSULE.DR PO SCH (16:54)
--- NOTE | 2019-12-16 19:16 | NUR ---
MS/RN CLOSING NOTES PATIENT CONTINUES TO REMAIN IN STABLE CONDITION THROUGHOUT THE SHIFT. PROVIDED COMFORT AND SAFETY. PATIENT ABLE TO TOLERATE MEALS AND MEDS WELL. ALL NEEDS ANTICIPATED. CALL LIGHT WITHIN REACHED. BED LOCKED AND IN LOWEST POSITION. SAFETY MAINTAINED. WILL CONTINUE TO MONITOR CLOSELY. ENDORSED TO PM NURSE FOR KETTY.
--- NOTE | 2019-12-16 19:35 | NUR ---
MS RN RECEIVED PATIENT IN BED A/O X 3 DAUGHTER AT BEDSIDE, STABLE AND NOT IN DISTRESS. WILL CONTINUE TO MONITOR
[2019-12-16 20:00] VITALS: BP 130/69
[2019-12-16] MEDS: SENNOSIDES 8.6 MG TABLET PO SCH (21:20)
[2019-12-16] MEDS: DONEPEZIL 5 MG TABLET PO SCH (21:20)
[2019-12-17] VITALS: BP 128/56
--- NOTE | 2019-12-17 03:11 | NUR ---
RT Pt tolerating night time BiPAP. Addendum: 12/17/19 at 0311 by KAMILA LYNN RT Amended: Links added.
[2019-12-17 04:34] VITALS: BP 117/54
[2019-12-17] MEDS: hydrALAZINE HCL 25 MG TABLET PO SCH ×3 (05:43→21:15)
--- NOTE | 2019-12-17 06:52 | NUR ---
PT ASLEEP AND EASILY AWAKEN, TOLERATING BIPAP SETTINGS DURING HS. PT NOW ON O2 NC 1LPM. O2 SAT AT 96%. SLEPT WELL. NOT IN APPARENT DISTRESS. AM CARE RENDERED, KEPT CLEAN, DRY AND COMFORTABLE. NEEDS ATTENDED AND ANTICIPATED. SAFETY MEASURES AT ALL TIMES. WILL ENDORSE NEXT SHIFT POC.
--- NOTE | 2019-12-17 07:43 | NUR ---
RN OPENING NOTES RECEIVED PATIENT AWAKE IN BED. A/O X4. PATIENT IS NO LONGER ON TELE MONITOR, GOT TRANSFERRED TO MED SURG. PATIENT IS ON 1L O2 VIA NC, TOLERATING WELL, SATURATING WELL. NO SOB OR ACUTE DISTRESS IS NOTED. IV ON RIGHT FOREARM, GAUGE #22. INTACT, PATENT AND FLUSHED WELL. NO S/S OF INFECTION IS NOTED. SAFETY MAINTAINED, CALL LIGHT WITHIN REACH. WILL CONTINUE TO MONITOR.
[2019-12-17 08:00] VITALS: BP 120/68
[2019-12-17] MEDS: glipiZIDE 5 MG TABLET PO SCH ×2 (08:49→18:02)
[2019-12-17] MEDS: MULTIVITAMINS,THERAGRAN 1 UDTAB TABLET PO SCH (08:49)
[2019-12-17] MEDS: FUROSEMIDE 40 MG TABLET PO SCH (08:49)
[2019-12-17] MEDS: DOCUSATE SODIUM 100 MG CAPSULE PO SCH ×2 (08:49→18:01)
[2019-12-17] MEDS: BUPROPION XL 150 MG TAB.ER.24 PO SCH (08:49)
[2019-12-17] MEDS: CARVEDILOL 6.25 MG TABLET PO SCH ×2 (08:50→18:01)
[2019-12-17] MEDS: APIXABAN 2.5 MG TABLET PO SCH ×2 (08:51→18:02)
[2019-12-17] MEDS: ISOSORBIDE MONONITRATE (30MG) 30 MG TAB.SR.24H PO SCH (08:51)
[2019-12-17] MEDS: PANTOPRAZOLE 40 MG TABLET.DR PO SCH (08:57)
[2019-12-17 13:16] LABS: CALCIUM, SERUM 9.2 mg/dL (8.5-10.1); CARBON DIOXIDE 34 mmol/L (21-32); CHLORIDE 96 mmol/L (98-107); CREATININE 2.3 mg/dL (0.6-1.3); GLUCOSE 265 mg/dL (74-106); POTASSIUM 3.6 mmol/L (3.5-5.1); SODIUM SERUM 137 mmol/L (136-145); UREA NITROGEN, BLOOD 57 mg/dL (7-18)
[2019-12-17] MEDS: SOD FERRIC GLUC 125 MG in IV NS 0.9% 100 ML IV SCH (14:10)
[2019-12-17 14:17] LABS: BASOPHILS % (AUTO) 0.6 % (0.0-2.0); EOSINOPHILS % (AUTO) 2.2 % (0.0-6.0); HEMATOCRIT 37 % (39-51); HEMOGLOBIN 11.8 g/dL (13.5-17.5); LYMPHOCYTES # (AUTO) 1.4 /CMM (0.8-4.8); MEAN CORPUSCULAR HGB CONC 32 g/dl (31.0-36.0); MEAN CORPUSCULAR VOLUME 90 fL (80-96); MONOCYTES # (AUTO) 0.7 /CMM (0.1-1.30); MONOCYTES % (AUTO) 9.4 % (2.0-12.0); NEUTROPHILS # (AUTO) 5.4 /CMM (1.8-8.9); NEUTROPHILS % (AUTO) 69.8 % (43.0-81.0); PLATELET COUNT (AUTO) 157 /CMM (150-450); RED BLOOD CELL COUNT(AUTO) 4.05 MIL/uL (4.5-6.0); WHITE BLOOD COUNT (AUTO) 7.7 K/uL (4.3-11.0)
[2019-12-17 16:00] VITALS: BP 115/52
[2019-12-17] MEDS: DULOXETINE HCL 30 MG CAPSULE.DR PO SCH (18:00)
[2019-12-17 20:00] VITALS: BP 132/49
[2019-12-17] MEDS: DONEPEZIL 5 MG TABLET PO SCH (21:14)
[2019-12-17] MEDS: SENNOSIDES 8.6 MG TABLET PO SCH (21:15)
--- NOTE | 2019-12-17 21:15 | NUR ---
RN NOTES DID NOT ADMINISTER [place] BECAUSE PATIENT DOES NOT HAVE CONSTIPATION. HAD LIQUID STOOL EARLIER DURING THE DAY.
[2019-12-18 04:00] VITALS: BP 157/74
--- NOTE | 2019-12-18 04:33 | NUR ---
RT NOTE Pt placed on bipap per md order @ 6797. Pt shows no signs of resp distress or sob. Mepilex in place and no skin tear or redness noted. Bipap plugged into red outlet, Alarms are set and audible. Will continue to monitor. Addendum: 12/18/19 at 0433 by CODEY SAEZ RT Amended: Links added.
[2019-12-18] MEDS: hydrALAZINE HCL 25 MG TABLET PO SCH ×2 (04:49→14:54)
[2019-12-18 06:54] LABS: BASOPHILS % (AUTO) 0.5 % (0.0-2.0); EOSINOPHILS % (AUTO) 2.8 % (0.0-6.0); HEMATOCRIT 36 % (39-51); HEMOGLOBIN 11.9 g/dL (13.5-17.5); LYMPHOCYTES # (AUTO) 1.8 /CMM (0.8-4.8); MEAN CORPUSCULAR HGB CONC 33 g/dl (31.0-36.0); MEAN CORPUSCULAR VOLUME 90 fL (80-96); MONOCYTES # (AUTO) 0.8 /CMM (0.1-1.30); MONOCYTES % (AUTO) 9.5 % (2.0-12.0); NEUTROPHILS # (AUTO) 5.2 /CMM (1.8-8.9); NEUTROPHILS % (AUTO) 64.2 % (43.0-81.0); PLATELET COUNT (AUTO) 147 /CMM (150-450); RED BLOOD CELL COUNT(AUTO) 4.04 MIL/uL (4.5-6.0)
--- NOTE | 2019-12-18 07:24 | NUR ---
RN CLOSING NOTES NO ACUTE CHANGES TO PATIENT CONDITION NOTED DURING MY SHIFT. PATIENT IN STABLE CONDITION. ALL PATIENT NEEDS MET. ALL SCHEDULED MEDICATIONS WERE ADMINISTERED. PATIENT TOLERATED WELL. EATING WELL, WITH ASSISSTANCE. PATIENT KEPT CLEAN AND DRY, SAFETY MAINTAINED, CALL LIGHT WITHIN REACH. WILL ENDORSE TO AM SHIFT NURSE TO CONTINUE CARE.
[2019-12-18 07:25] LABS: CALCIUM, SERUM 9.2 mg/dL (8.5-10.1); CARBON DIOXIDE 37 mmol/L (21-32); CHLORIDE 95 mmol/L (98-107); CREATININE 2.2 mg/dL (0.6-1.3); GLUCOSE 118 mg/dL (74-106); SODIUM SERUM 136 mmol/L (136-145); UREA NITROGEN, BLOOD 52 mg/dL (7-18)
--- NOTE | 2019-12-18 07:35 | NUR ---
MS RN OPENING NOTES RECEIVED PT IN BED, AWAKE, A/O X4, PT TOLERATING RA, WITH NO ACUTE RESPIRATORY DISTRESS NOTED. PT DENIES ANY PAIN OR DISCOMFORT. PT ALSO DENIES CONCERNS OR QUESTIONS AT THIS TIME. PIV TO RFA G22 SL, FLUSHED WITH NS, INTACT AND OPERATIONAL. PT KEPT COMFORTABLE IN BED. CALL LIGHT KEPT WITHIN REACH. PT'S BED IN LOWEST, LOCKED POSITION WITH SRX3. WILL CONTINUE PLAN OF CARE.
[2019-12-18 08:00] VITALS: BP 143/47
[2019-12-18] MEDS: PANTOPRAZOLE 40 MG TABLET.DR PO SCH (08:51)
[2019-12-18] MEDS: MULTIVITAMINS,THERAGRAN 1 UDTAB TABLET PO SCH (08:52)
[2019-12-18] MEDS: DOCUSATE SODIUM 100 MG CAPSULE PO SCH ×2 (08:52→16:24)
[2019-12-18] MEDS: BUPROPION XL 150 MG TAB.ER.24 PO SCH (08:54)
[2019-12-18] MEDS: FUROSEMIDE 40 MG TABLET PO SCH (08:54)
[2019-12-18] MEDS: glipiZIDE 5 MG TABLET PO SCH ×2 (08:54→16:21)
[2019-12-18] MEDS: APIXABAN 2.5 MG TABLET PO SCH ×2 (08:55→16:22)
[2019-12-18] MEDS: ISOSORBIDE MONONITRATE (30MG) 30 MG TAB.SR.24H PO SCH (08:58)
[2019-12-18] MEDS: CARVEDILOL 6.25 MG TABLET PO SCH ×2 (08:58→16:21)
[2019-12-18] MEDS: POTASSIUM CHLORIDE 20 MEQ TAB.PRT.SR PO SCH ×2 (09:34→10:58)
[2019-12-18] MEDS ORDERED: FURO-144 PO (11:36)
[2019-12-18 16:00] VITALS: BP 135/56
[2019-12-18 16:21] VITALS: BP 135/56
[2019-12-18] MEDS: DULOXETINE HCL 30 MG CAPSULE.DR PO SCH (17:58)
--- NOTE | 2019-12-18 18:32 | NUR ---
MS SHOP FIRER/FIREMAN NOTES PT IN BED, AWAKE, A/O X4, PT TOLERATING RA, WITH NO ACUTE RESPIRATORY DISTRESS NOTED. PT TO DISCHARGE TO [facility] CARE. PT DENIES ANY PAIN OR DISCOMFORT AT THE TIME OF DISCHARGE. DAUGHTER/ISIDRO REVIEWED AND SIGNED DISCHARGE INSTRUCTIONS AND INVENTORY LIST. ALL BELONGINGS WITH THE PT. SKIN ISSUES PICTURES TAKEN AND FILED IN THE CHART. PIV TO RFA G22 SL, REMOVED AND APPLIED DRY DRESSING. ALL NEEDS AND CARE ATTENDED. PT AND DAUGHTER HAPPY WITH THE CARE PROVIDED. PT TRANSPORTED VIA GURNEY IN AN AMBULANCE. VS STABLE. PT LEFT THE UNIT AT 1825. HOSPITALIST/CN AND CN/COON AWARE OF DISCHARGE.
== END 2019-12-18 18:20 | disposition home or self-care (01) | DRG 291 ==
LOC: ER 20:30 → TELE1 23:43 → MEDSG1 12-11 11:55 → ICU 12-12 11:38 → MEDSG1 12-13 18:47 → TELE1 12-13 18:49 → TELE-TD 12-13 20:19 → TELE1 12-14 14:00 → MEDSG1 12-17 08:25
PROVIDERS: ADMIT Nurse Practitioner Acute Care; ATTEND Nurse Practitioner Acute Care
PROC: 5A09457 Assistance with Respiratory Ventilation, 24-96 Consecutive Hours, Continuous Positive Airway Pressure (ICD-10-PCS; principal; 2019-12-10)
DX: I13.0 Hypertensive heart and chronic kidney disease with heart failure and stage 1 through stage 4 chronic kidney disease, or unspecified chronic kidney disease (principal); I50.33 Acute on chronic diastolic (congestive) heart failure; J96.02 Acute respiratory failure with hypercapnia; J96.01 Acute respiratory failure with hypoxia; N17.0 Acute kidney failure with tubular necrosis; E87.2 Acidosis; D68.69 Other thrombophilia; D69.6 Thrombocytopenia, unspecified; E88.09 Other disorders of plasma-protein metabolism, not elsewhere classified; F01.50 Vascular dementia, unspecified severity, without behavioral disturbance, psychotic disturbance, mood disturbance, and anxiety; I25.10 Atherosclerotic heart disease of native coronary artery without angina pectoris; I48.91 Unspecified atrial fibrillation; Z86.711 Personal history of pulmonary embolism; Z86.718 Personal history of other venous thrombosis and embolism; Z79.01 Long term (current) use of anticoagulants; Z95.2 Presence of prosthetic heart valve; Z87.01 Personal history of pneumonia (recurrent); E11.22 Type 2 diabetes mellitus with diabetic chronic kidney disease; D63.8 Anemia in other chronic diseases classified elsewhere; Z79.84 Long term (current) use of oral hypoglycemic drugs; N18.9 Chronic kidney disease, unspecified
CPT/HCPCS: 36415; 36600; 71045-TC; 80048-TC; 80053-TC; 80061-TC; 80076-TC; 81000-TC; 82550-TC; 82570-TC; 82728-TC; 82803-TC; 82962-TC; 83540-TC; 83735-TC; 83880; 83970; 84100-TC; 84155; 84155-TC; 84165; 84300-TC; 84439-TC; 84443-TC; 84484-TC; 85025-TC; 87081-TC; 92611-TC; 93307-TC; 94760-TC; 94799-TC; 97112-TC; 97530-TC; A4216; A4349; G0378; J1120; J1650; J1940; J2916; J2930; J3490; J7030; J7050